=== PATIENT | female | born 1980 | race African-American/Black ===

== ENCOUNTER 2016-10-06 15:51 | Emergency (ER) | payer OTHER ==
[2016-10-06 16:07] VITALS: BP 112/74; PULSE 100; TEMP 98.6; BMI 30.9
[2016-10-06] MEDS ORDERED: IBUPROFEN 400 MG TABLET (FP) PO ONE ×2 (16:18→16:21)
[2016-10-06] MEDS ORDERED: CYCLOBENZAPRINE HCL 10 MG TABLET (FP) PO ONE (16:18)
[2016-10-06] MEDS ORDERED: CYCLOBENZAPRINE HCL 10 MG TABLET (FP) ONE (16:21)
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
== END 2016-10-06 17:11 | disposition home or self-care (01) ==
LOC: FER 15:51
DX: S29.012A Strain of muscle and tendon of back wall of thorax, initial encounter (principal); S80.11XA Contusion of right lower leg, initial encounter; V47.0XXA Car driver injured in collision with fixed or stationary object in nontraffic accident, initial encounter; Y93.89 Activity, other specified; Y92.410 Unspecified street and highway as the place of occurrence of the external cause
CPT/HCPCS: 99282-25